=== PATIENT | female | born 1975 | race Caucasian/White ===

== ENCOUNTER 2020-02-07 13:51 | Emergency (ER) | payer MEDICAID ==
--- NOTE | 2020-02-07 14:07 | ER Document Report ---
HPI - HPI Time Seen by Provider: 02/07/20 13:56 Onset: Other - 3 days Onset/Duration: Gradual Quality of pain: Burning Context: Patient presents with concern about possible exposure to STI. Patient states that she has had vaginal discharge and some urinary frequency. Patient states that she recently found out her partner had been cheating on her and she would like to be tested for everything. Associated Symptoms: denies: Fever, Nausea, Vomiting Exacerbated by: Denies Relieved by: Denies Similar symptoms previously: No Recently seen / treated by doctor: No - ROS ROS below otherwise negative: Yes Systems Reviewed and Negative: Yes All other systems reviewed and negative - CONSTITUTIONAL Constitutional: DENIES: Fever, Chills - GASTROINTESTINAL Gastrointestinal: REPORTS: Abdominal Pain. DENIES: Nausea, Patient vomiting - URINARY Urinary: REPORTS: Frequency. DENIES: Dysuria - REPRODUCTIVE Reproductive: REPORTS: Abnormal bleeding / discharge - MUSCULOSKELETAL Musculoskeletal: DENIES: Back Pain - DERM Skin Color: Normal Skin Problems: None Past Medical History - General Information source: Patient - Social History Smoking Status: Current Every Day Smoker Frequency of alcohol use: None Drug Abuse: None Lives with: Family Family History: Reviewed & Not Pertinent - Medical History Medical History: Negative Past Surgical History: Reports: Hx Section, Other - skin graft Vertical Provider Document - CONSTITUTIONAL Agree With Documented VS: Yes Exam Limitations: No Limitations General Appearance: WD/WN, No Apparent Distress - HEENT HEENT: Atraumatic, Normocephalic - NECK Neck: Normal Inspection, Supple. negative: Lymphadenopathy-Left, Lymphadenopathy-Right - RESPIRATORY Respiratory: Breath Sounds Normal, No Respiratory Distress - CARDIOVASCULAR Cardiovascular: Regular Rate, Regular Rhythm - GI/ABDOMEN Gastrointestinal: Abdomen Tender - suprapubic - REPRODUCTIVE Female Genitalia: Abnormal Inspection - white vaginal discharge, freeman pct as standby. negative: CMT, Adnexal Pain-Right, Adnexal Pain-Left - BACK Back: Normal Inspection. negative: CVA Tenderness-Right, CVA Tenderness-Left - MUSCULOSKELETAL/EXTREMETIES Musculoskeletal/Extremeties: MAEW - NEURO Level of Consciousness: Awake, Alert, Appropriate Motor/Sensory: No Motor Deficit - DERM Integumentary: Warm, Dry, No Rash Course - Vital Signs Vital signs: Temp Pulse Resp BP Pulse Ox 98.5 F 70 16 133/82 H 100 02/07/20 13:56 02/07/20 13:56 02/07/20 13:56 02/07/20 13:56 02/07/20 13:56 Discharge - Discharge Clinical Impression: Concern about sexually transmitted disease in female without diagnosis, Bacterial vaginosis UTI (urinary tract infection) Qualifiers: Urinary tract infection type: site unspecified Hematuria presence: without he maturia Qualified Code(s): N39.0 - Urinary tract infection, site not specified Condition: Stable Disposition: HOME, SELF-CARE Instructions: Metronidazole ([facility]), Urinary Anesthetic Agent ([facility]), Urinary Tract Infection ([facility]), Vaginosis, Bacterial ([facility]) Additional Instructions: Return immediately for any new or worsening symptoms Followup with your primary care provider, call tomorrow to make a followup appointment Cultures are pending, we will call if you need any different treatment Prescriptions: Metronidazole [Flagyl 500 mg Tablet] 500 mg PO BID #14 tablet Cephalexin Monohydrate [Keflex 500 mg Capsule] 500 mg PO BID 4 Days #8 capsule Phenazopyridine HCl [Pyridium 200 mg Tablet] 200 mg PO TID #15 tablet Referrals: [facility] [Provider Group] - Follow up as needed [facility] - Follow up as needed
[2020-02-07 14:45] LABS: APPEARANCE,URINE SLIGHTLY-CLOUDY; BILIRUBIN,URINE NEGATIVE (NEGATIVE); COLOR,URINE YELLOW; GLUCOSE, URINE NEGATIVE (NEGATIVE); KETONES,URINE NEGATIVE (NEGATIVE); LEUKOCYTE ESTERASE,URINE NEGATIVE (NEGATIVE); NITRITE,URINE POSITIVE (NEGATIVE); PROTEIN,URINE >=500 mg/dL (NEGATIVE); UROBILINOGEN,URINE NEGATIVE mg/dL (<2.0)
[2020-02-07] MEDS ORDERED: CEFTRIAXONE INJ 1000 MG VIAL IM ONE (14:46)
[2020-02-07] MEDS ORDERED: AZITHROMYCIN 250 MG TABLET PO ONE (14:46)
[2020-02-07] MEDS ORDERED: LIDOCAINE 1% INJ-PF (10 MG/ML) 30 ML SDV INJ ONE (14:46)
[2020-02-07 15:12] LABS: BACTERIA (WET MOUNT) 4+ BACTERIA SEEN; EPITHELIALS (WET MOUNT) 4+ EPITHELIALS SEEN; T.VAGINALIS (WET MOUNT) NO TRICHOMONAS SEEN; WBCS (WET MOUNT) 2+ WBCS SEEN; YEAST (WET MOUNT) NO YEAST SEEN
[2020-02-07 15:27] VITALS: BP 128/78
[2020-02-07 16:10] LABS: CHLAM PCR NOT DETECTED (NOT DETECT)
== END 2020-02-07 15:29 | disposition home or self-care (01) ==
LOC: ER 13:51
DX: N39.0 Urinary tract infection, site not specified (principal); N76.0 Acute vaginitis; B96.89 Other specified bacterial agents as the cause of diseases classified elsewhere; Z20.2 Contact with and (suspected) exposure to infections with a predominantly sexual mode of transmission
CPT/HCPCS: 99283; 96372; 36415; 87086; 87210; 87088; 86592; 81001; 86701; 87491; 87591; J3490; J0696; 87186